=== PATIENT | female | born 1990 | race Caucasian/White ===

== ENCOUNTER 2019-05-23 17:46 | Emergency (ER) | payer MEDICAID ==
[~2019-05-23] VITALS: Ht 162.6 cm; Wt 84.0 kg
[~2019-05-23 17:46] MED LIST: PREN-55 PO
[2019-05-23 18:00] VITALS: BP 130/80
== END 2019-05-24 01:54 | disposition left against medical advice (07) ==
LOC: ER 17:46
DX: R05 Cough (principal); R09.81 Nasal congestion; Z53.21 Procedure and treatment not carried out due to patient leaving prior to being seen by health care provider